=== PATIENT | female | born 1995 | race African-American/Black ===

== ENCOUNTER 2018-05-09 13:13 | Outpatient (CLI) | payer BC ==
[2018-05-09 13:42] LABS: #Basophils 0.1 thou/uL (0.0-0.2); #Eosinphils 0.3 thou/uL (0.0-0.7); #Lymphocytes 1.7 thou/uL (1.20-3.40); #Monocytes 0.6 thou/uL (0.11-0.59); #Neutrophils 4.5 thou/uL (1.40-6.50); %Basophils 1.4 % (0.0-1.0); %Eosinophils 3.6 % (0.0-10.0); Hemoglobin 13.3 g/dL (12.0-16.0); Mean Corpuscular HGB CONC 32.4 g/dL (32.0-36.0); Mean Corpuscular Hemoglobin 28.8 pg (27.0-31.0); Mean Platelet Volume 7.3 fL (7.4-10.4); Platelet Count 247 thou/uL (130-400); RBC Distribution Width 11.3 % (11.5-14.5); Red Blood Cell (RBC) Count 4.62 mill/uL (4.20-5.40); White Blood Cell (WBC) Count 7.1 thou/uL (4.8-10.8)
[2018-05-09 14:08] LABS: INR-International Normal Ratio 1.1; PTT 28.4 SEC (22.9-36.1); Prothrombin Time 14.1 SEC (12.0-14.7)
[2018-05-09 14:09] LABS: D-Dimer Test 2.86 *mcg/mL (0.27-0.43)
--- NOTE | 2018-05-09 15:49 | ULT ---
BILATERAL LOWER EXTREMITY VENOUS DOPPLER WITH SPECTRAL ANALYSIS AND COLOR FLOW EVALUATION: 05/09/18 HISTORY: Right lower extremity pain and edema. Patient is in a walking boot. FINDINGS: Pablo scale, color flow, doppler evaluation, with spectral analysis of the bilateral lower extremity v enous structures is performed with 2D imaging. The bilateral lower extremity common femoral, superfic ial femoral, popliteal, posterior tibial, most proximal greater saphenous and profunda femoral veins are imaged. There is increased lumen echogenicity and decreased lumen compressibility involving the left lower e xtremity popliteal and posterior tibial veins with decreased flow on color flow evaluation most monserrat tible with near occlusive DVT in the left lower extremity popliteal and posterior tibial veins. No de finite flow is seen in the distal left posterior tibial vein. There is otherwise normal lumen ronn sibility and flow in the remaining visualized deep venous structures of the left lower extremity. There is normal lumen compressibility, flow, and augmentation in the visualized deep venous structure s of the right lower extremity. IMPRESSION: Near occlusive DVT involving the left lower extremity popliteal and posterior tibial veins with proba ble occlusive DVT in distal left posterior tibial vein. The patient was transported to the Emergency Department for further care and treatment regarding the left lower extremity DVT. Above findings wer e discussed with Dr. Jackson in the Emergency Department on 05/09/18 at 1508 hours.
[2018-05-09 16:32] LABS: Fibrinogen 441 mg/dL (253-463)
[2018-05-09 16:33] LABS: FSP-Qualitative ABNORMAL (Normal); FSP-Semiquantitative >=20 & <40 mcg/mL (Less than 5)
== END 2018-05-09 13:14 | disposition home or self-care (01) ==
LOC: SCSULT 13:13
PROVIDERS: ATTEND Pediatrics Sports Medicine
DX: M79.89 Other specified soft tissue disorders (principal); M79.605 Pain in left leg; M79.604 Pain in right leg
CPT/HCPCS: 36415; 85025; 85362; 85379; 85384; 85610; 85730; 93970

== ENCOUNTER 2018-05-09 15:16 | Emergency (ER) | payer BC ==
[2018-05-09 16:56] LABS: Pregnancy Test - Urine (BHCG) Negative (Negative); Pregu Control Background? CLEAR/WHITE (CLR/WHITE); Pregu Control Bar Appear? YES (CONTROL BAR)
[2018-05-09] MEDS ORDERED: Dextrose 5 %-0.45 % NaCl 1,000 ML IV SCH (20:00)
== END 2018-05-09 17:30 | disposition home or self-care (01) ==
LOC: SCSER 15:16
DX: I82.402 Acute embolism and thrombosis of unspecified deep veins of left lower extremity (principal)
CPT/HCPCS: 36415; 81025; 85025; 85362; 85379; 85384; 85610; 85730; 93970; 99283